=== PATIENT | male | born 1965 | race African-American/Black ===

== ENCOUNTER → 2016-04-16 | Outpatient (CLI) | payer OTHER ==
[~2016-04-16] MED LIST: CYCL1TAB29 PO; LITH300C2 PO; LURA80 PO; ROBA500T PO; VENL150C39 PO
[2016-04-16 12:23] LABS: HEMATOCRIT 46.7 % (39.0-51.0); MEAN CELL VOLUME 89.7 FL (80.0-100.0); MEAN CORPUSCULAR HEMOGLOBIN 29.8 PG (27.0-34.0); MEAN CORPUSCULAR HGB CONC 33.2 % (32.0-36.0); PLATELET COUNT 281 TH/MM3 (150-450); RED CELL DISTRIBUTION WIDTH 13.5 % (11.6-17.2); REVIEW FLAG FINAL; WHITE BLOOD COUNT 7.2 TH/MM3 (4.0-11.0)
[2016-04-16 12:42] LABS: ALT (GPT) 22 U/L (12-78); ANION GAP 5 MEQ/L (5-15); AST (GOT) 12 U/L (15-37); BICARBONATE 30.7 MEQ/L (21.0-32.0); BLOOD UREA NITROGEN 8 MG/DL (7-18); CHLORIDE 103 MEQ/L (98-107); GLOMERULAR FILTRATION RATE 71 ML/MIN (>89); GLUCOSE,FASTING 85 MG/DL (74-99); POTASSIUM 4.1 MEQ/L (3.5-5.1); SODIUM (NA) 139 MEQ/L (136-145)
[2016-04-16 13:07] LABS: ALKALINE PHOSPHATASE 70 U/L (45-117); TOTAL BILIRUBIN ADULT 0.6 MG/DL (0.2-1.0)
== END ==
LOC: CLAB 11:49
DX: F31.75 Bipolar disorder, in partial remission, most recent episode depressed (principal); Z79.899 Other long term (current) drug therapy
CPT/HCPCS: 36415; 80053; 80178; 82306; 82607; 84443; 85027

== ENCOUNTER → 2016-08-29 | Outpatient (CLI) | payer OTHER ==
[~2016-08-29] MED LIST changes: +IOHEXOL 350 MG/ML 10 ML VIAL (for RAD DIAG) IV ONE
--- NOTE | 2016-08-29 15:04 | RADRPT ---
EXAM DATE/TIME: 08/29/2016 14:45 [place] COMPARISON: No previous studies available for comparison. INDICATIONS : Diffuse abdomen pain IV CONTRAST: 71 cc Omnipaque 350 (iohexol) IV ORAL CONTRAST: Prescribed oral contrast ingested. RADIATION DOSE: 9.96 CTDIvol (mGy) MEDICAL HISTORY : None SURGICAL HISTORY : Hernia repair 5 years ago. ENCOUNTER: Initial ACUITY: >1 yr PAIN SCALE: 7/10 LOCATION: Bilateral mid quadrant. TECHNIQUE: Volumetric scanning of the abdomen and pelvis was performed. Using automated exposure control and ad justment of the mA and/or kV according to patient size, radiation dose was kept as low as reasonably achievable to obtain optimal diagnostic quality images. FINDINGS: Fat containing umbilical hernia. Patient is status post ventral hernia repair the lower abdomen and p rosemarie region. The bladder is abnormal. It is decompressed however there is wall thickening and perive sicle stranding identified. This is suspect for cystitis. There is diverticulosis of the sigmoid colo n without diverticulitis. Stomach, spleen, pancreas, adrenal glands, kidneys, small bowel unremarkabl e. There is no adenopathy or aneurysm. No free fluid. The lung bases are clear. Osseous structures de monstrate a probable bone island left iliac bone. CONCLUSION: 1. Mild diverticulosis without diverticulitis. 2. Findings are concerning for cystitis with abnormal circumferential bladder wall thickening and per ivesicle stranding noted. Marco A Mcnally MD on August 29, 2016 at 15:00 Board Certified Radiologist. This report was verified electronically.
== END ==
LOC: HRAD 13:00
PROVIDERS: ATTEND Family Medicine
DX: R10.9 Unspecified abdominal pain (principal)
CPT/HCPCS: 74177; Q9967

== ENCOUNTER → 2016-09-07 | Outpatient (CLI) | payer OTHER ==
[~2016-09-07] MED LIST changes: -IOHEXOL 350 MG/ML 10 ML VIAL (for RAD DIAG) IV ONE
[2016-09-07 11:01] LABS: BLOOD, URINE SMALL (NEG); COMMENT (UR) CULT NOT INDICATED; CULTURE IF INDICATED CULT NOT INDICATED; GLUCOSE,URINE NEG (NEG); KETONE, URINE NEG (NEG); MUCUS URINE FEW /lpf (OCC); NITRITE,URINE NEG (NEG); URINE COLOR YELLOW (YELLW/STRAW)
== END ==
LOC: CLAB 10:33
PROVIDERS: ATTEND Nurse Practitioner Family
DX: N30.90 Cystitis, unspecified without hematuria (principal)
CPT/HCPCS: 81001

== ENCOUNTER → 2016-09-13 | Outpatient (CLI) | payer OTHER | LOC: CLAB 09:37 | PROVIDERS: ATTEND Family Medicine | DX: N30.90 Cystitis, unspecified without hematuria (principal) | CPT/HCPCS: 36415; 84153 ==

== ENCOUNTER → 2016-12-25 | Outpatient (CLI) | payer OTHER ==
[~2016-12-25] MED LIST changes: -CYCL1TAB29 PO; +IBUP-232 PO; +KETO60IN6 IM; +ZYPR15TA PO
[2016-12-25 09:21] LABS: AUTOMATED NEUTROPHIL # 3.2 TH/MM3 (1.8-7.7); BASOPHIL % 0.4 % (0.0-2.0); EOSINOPHIL # 0.3 TH/MM3 (0-0.4); EOSINOPHIL % 4.4 % (0.0-4.0); HEMATOCRIT 43.4 % (39.0-51.0); HEMO FLAGS DIFF FINAL; LYMPH % 31.2 % (9.0-44.0); LYMPHOCYTE # 1.9 TH/MM3 (1.0-4.8); MEAN CELL VOLUME 90.4 FL (80.0-100.0); MEAN CORPUSCULAR HEMOGLOBIN 29.3 PG (27.0-34.0); MEAN CORPUSCULAR HGB CONC 32.4 % (32.0-36.0); MONO % 11.3 % (0.0-8.0); NEUT % 52.7 % (16.0-70.0); PLATELET COUNT 338 TH/MM3 (150-450); RED BLOOD COUNT 4.81 MIL/MM3 (4.50-5.90); RED CELL DISTRIBUTION WIDTH 13.4 % (11.6-17.2); WHITE BLOOD COUNT 6.1 TH/MM3 (4.0-11.0)
[2016-12-25 09:34] LABS: ANION GAP 3 MEQ/L (5-15); AST (GOT) 18 U/L (15-37); BICARBONATE 28.6 MEQ/L (21.0-32.0); BLOOD UREA NITROGEN 10 MG/DL (7-18); CHLORIDE 105 MEQ/L (98-107); GLOMERULAR FILTRATION RATE 77 ML/MIN (>89); GLUCOSE,FASTING 91 MG/DL (74-99); POTASSIUM 4.2 MEQ/L (3.5-5.1); SODIUM (NA) 137 MEQ/L (136-145)
[2016-12-25 09:35] LABS: ALT (GPT) 32 U/L (12-78)
[2016-12-25 09:45] LABS: ALKALINE PHOSPHATASE 66 U/L (45-117); HDL CHOLESTEROL 60.5 MG/DL (40.0-60.0); LDL CHOLESTEROL 55 MG/DL (0-99); TOTAL BILIRUBIN ADULT 0.4 MG/DL (0.2-1.0)
== END ==
LOC: CLAB 08:45
PROVIDERS: ATTEND Nurse Practitioner Family
DX: F31.75 Bipolar disorder, in partial remission, most recent episode depressed (principal); Z79.899 Other long term (current) drug therapy
CPT/HCPCS: 36415; 80053; 80061; 80178; 84443; 85025